=== PATIENT | male | born 1945 | race Caucasian/White ===

== ENCOUNTER → 2019-06-19 | Outpatient (CLI) | payer MEDICARE, BC | LOC: RAD 08:00 | DX: M17.12 Unilateral primary osteoarthritis, left knee (principal) ==

== ENCOUNTER → 2022-08-17 | Outpatient (CLI) | payer MEDICARE, BC | LOC: RAD 08:30 | DX: M17.0 Bilateral primary osteoarthritis of knee (principal) ==

== ENCOUNTER → 2024-09-25 | Outpatient (CLI) | payer MEDICARE, BC | LOC: RAD 09:33 | DX: Z96.653 Presence of artificial knee joint, bilateral (principal) ==